=== PATIENT | male | born 1985 | race Caucasian/White ===

== ENCOUNTER 2017-07-20 15:55 | Emergency (ER) | payer MEDICAID, SELFPAY ==
[2017-07-20 15:56] VITALS: BP 136/82; PULSE 142; RESP 16; TEMP 36.7; O2SAT 95; BMI 26.5
--- NOTE | 2017-07-20 16:11 | EKG12_ITS ---
Test Reason : DYSRHYTHMIA Blood Pressure : / mmHG Vent. Rate : 116 BPM Atrial Rate : 116 BPM P-R Int : 138 ms QRS Dur : 084 ms QT Int : 324 ms P-R-T Axes : 028 037 055 degrees QTc Int : 450 ms Sinus tachycardia Otherwise normal ECG Confirmed by JAYSEH TERAN, ALVIN ([id number]), news copy editor BRANDON COATS ([id number]) on 07/25/2017 2:13:23 PM Referred By: KEVAN Confirmed By:ALVIN MCCONNELL MD
--- NOTE | 2017-07-20 16:14 | ED.DCSUM_ITS ---
- ER Visit Summary Date of Service: 07/20/17 Chief Complaint: [] Alcohol abuse requesting detox History of Present Illness: The patient is a 31 M [] of alcohol abuse drinks about 12 cans of beer a day long-standing he has a history of cirrhosis pancreatitis from the above, he indicates he was seen at [facility] today had a full evaluation they have cleared him for detox but sent him to the emergency department for screening labs of the screening labs unremarkable he is to be picked up by the [facility] personnel taken to detox today. The patient has no fever cough head neck chest or abdominal pain normal bowel bladder habits he denies abusing any other drugs he drank this morning Gastric bypass 2009 Physical Examination: [] His HEENT exam is unremarkable his vital signs are within normal limits his head neck exam unremarkable lungs are clear heart tones are normal abdomen soft nontender upper lower extremities unremarkable neurologically awake alert no psychomotor agitation Test Results: [] Emergency Department Course and Treatment: [] Clinically he is stable he is no will obtain screening labs if they are within normal range she will be discharged to complete his detox and to [facility] The patient's screening labs are generally unremarkable his hemoglobin is about 11 there is no old labs for comparison his LFTs are slightly elevated please see those reports his alcohol serum is pending given all the above he is awake he is alert we have asked the [facility] staff if they are available on psych to see the patient otherwise he will be discharged to continue his detox as discussed above Treatment Plan: [] Disposition: [] Detox [facility] Impression: [] Alcohol abuse requesting detox This note was generated with [employer] dictation software. It may contain incorrect words, spelling, and punctuation that were not noted in review of the chart prior to signing ED Disposition - Plan for ED Patient: Chief Complaint: Subst Abuse
[2017-07-20] MEDS: Ondansetron 4 MG/2 ML Vial IV (17:21)
[2017-07-20] MEDS: 0.9% Normal Saline 1,000 ML 1000 ML IV (17:21)
[2017-07-20 17:22] VITALS: BP 108/87; PULSE 112; RESP 17; O2SAT 93
[2017-07-20] MEDS: LORazepam 2 MG/ML Syringe 1 MG IV (17:26)
[2017-07-20 17:33] LABS: Absolute Lymphocyte Count 1.08 X10^3/ul (0.83-4.51); Absolute Neutrophil Count 1.5 X10^3/uL (2.0-7.7); Basophil# 0.02 X10^3/uL; Basophil% 0.7 % (0-1); Eosinophil# 0.01 X10^3/uL; Eosinophils% 0.3 % (0-5); Hematocrit 35.5 % (40-54); Hemoglobin 10.8 g/dl (13.0-16.5); Lymphocyte # 1.08 X10^3/ul (4.0); Lymphocyte % 37.4 % (19-41); Mean Corp Hgb Conc 30.4 g/gl (32-36); Mean Corpuscular Hgb 25.1 pg (27.0-32.0); Mean Corpuscular Volume 82.4 fL (80-94); Monocyte% 10.4 % (0-10); Neutrophil # 1.48 X10^3/uL (2.7-7.7); Neutrophil % 51.2 % (47-70); POSITIVE DIFFERENTIAL NO; Platelet Count 51 K/mm3 (150-450); RBC Distribution Width CV 20.2 % (11.6-14.6); RBC Distribution Width SD 60.8 fl (35.1-43.9); Red Blood Count 4.31 M/mm3 (4.6-6.2); White Blood Count 2.9 K/mm3 (4.4-11.0)
[2017-07-20 17:34] LABS: Differential Indicated SCAN CRITERIA MET; POSITIVE COUNT NO; POSITIVE MORPHOLOGY YES
[2017-07-20 17:36] LABS: AST(SGOT) 212 U/L (15-37); Alanine Aminotransfer ALT/SGPT 93 U/L (16-61); Albumin, Serum 2.6 g/dL (3.2-5.0); Alkaline Phosphatase 294 U/L (45-117); Anion Gap 9 (5-15); BUN 4 mg/dL (7-18); BUN/Creat Ratio 5.9 RATIO (10-20); Bilirubin, Direct 0.23 mg/dL (0.00-0.30); Calcium,Total 7.7 mg/dL (8.5-10.1); Chloride 106 mmol/L (98-107); Creatinine, Serum 0.68 mg/dL (0.70-1.30); EST Glomerular Filtration Rate 145 mL/min (>60); Est Glom Filt Rate - Afr Amer 176 mL/min (>60); Estimated Creatinine Clearance 164.01 ml/min; Globulin 3.8 g/dL (2.2-4.2); Glucose 100 mg/dL (74-106); Lipase 96 U/L (73-393); Potassium 3.9 mmol/L (3.5-5.1); Protein, Total 6.4 g/dL (6.4-8.2); Sodium Level 141 mmol/L (136-145)
--- NOTE | 2017-07-20 17:45 | ED.DEP ---
ED Disposition - Plan for ED Patient: Chief Complaint: Subst Abuse Instructions: ED Alcohol Abuse Additional Instructions: Continue your detox at the detox center as discussed with you and follow all the instructions they gave you when you saw them today
[2017-07-20 17:54] LABS: Anisocytosis RARE; Microcytosis RARE; Platelet Estimate MKD DEC (ADEQ)
[2017-07-20 18:07] VITALS: BP 107/81; PULSE 105; RESP 15; O2SAT 94
[2017-07-20 18:53] LABS: Bacteria 0 SEEN /hpf (None Seen); Mucous, Urine 0 SEEN /hpf (<or=2+); Red Blood Cells-Urine 0 SEEN /hpf (0-5); White Blood Cells 0 SEEN /hpf (0-5)
[2017-07-20 19:27] LABS: Color, Urine Yellow (Yellow); Glucose, Dipstick Normal (Normal); Ketone-Dipstick Negative (Negative); Leukocyte Esterase-Dipstick Negative /ul (Negative); Nitrite-Dipstick Negative (Negative); Occult Blood-Urine Negative /ul (Negative); Protein-Dipstick Negative (Negative); Urine Bilirubin Dipstick Negative (Negative); Urine Clarity Sl. Cloudy (Clear); Urine Urobilinogen Normal (Normal); Urine pH 6.5 (5.0 - 8.0)
[2017-07-20 20:22] LABS: Squamous Epithelial Cells - UA 0-5 SEEN /hpf (0-5)
== END 2017-07-20 18:09 | disposition home or self-care (01) ==
PROVIDERS: Emergency Provider Emergency Medicine
DX: F10.10 Alcohol abuse, uncomplicated (principal); K74.60 Unspecified cirrhosis of liver; Z87.19 Personal history of other diseases of the digestive system; Z98.84 Bariatric surgery status; Z79.899 Other long term (current) drug therapy
CPT/HCPCS: 80048; 80076; 80320; 81001; 83690; 85025; 93005; 99283; J7030; G0480

== ENCOUNTER 2017-07-21 12:05 | Inpatient (IN) | payer MEDICAID, SELFPAY ==
[2017-07-21 12:26] VITALS: BMI 26.6
--- NOTE | 2017-07-21 12:56 | NURSING ---
OFFICE CALLED AND ASKED TO FAX PT CURRENT MED LIST.
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
[2017-07-21 13:56] LABS: Alcohol, Blood (Medical)-Serum < 3.0 mg/dL
[2017-07-21 14:00] VITALS: BP 120/78; PULSE 120; PULSE 90; RESP 18; TEMP 37.1; O2SAT 100
[2017-07-21] MEDS: cloNIDine HCl 0.1 MG Tablet PO ×3 (14:04→22:39)
[2017-07-21] MEDS: LORazepam 1 MG Tablet PO ×3 (14:04→22:39)
[2017-07-21] MEDS: Pantoprazole Sodium 40 MG Tablet PO ×2 (14:05→22:39)
[2017-07-21] MEDS: oxyCODONE 5 MG Tablet PO ×2 (14:42→22:39)
--- NOTE | 2017-07-21 16:15 | CHAPLAIN ---
Type of Pastoral Visit _x__ Initial Visit ___ Follow-up Visit ___ On-call Visit ___ General Patient Visit ___ Spiritual Assessment ___ Family Conference ___ Bereavement ___ Rapid Response ___ Code Blue ___ Other (describe below) Pastoral Care Referral From _x__ Patient ___ Family ___ Nurse ___ Physician ___ Corner Cutter Machine Operator ___ Burr Grinder ___ Other (describe below) Sacrament/Intervention _x__ Active listening ___ Anointing ___ Anabaptism ___ Bereavement ___ Communion _x__ Natasha exploration ___ _x__ Life review _x__ Prayer ___ Reconciliation ___ Sacrament of Sick _x__ Supportive presence ___ Wedding ___ Other (describe below) Pastoral Comments patient is getting settled and finishing his lunch; pt says he has the jitters; pt talks about his decision about not going to the 9 month rehab because he does not want to lose his house; pt says that he can easily get a good job and save his house; pt says he will go to 90 AA meetings in 90 days instead; pt has a natasha connection and a relationship with a application developer from a previous employment; pt says that his mother blocks his phone calls; pt open to talk and prayer
[2017-07-21] MEDS: traMADol 50 MG Tablet PO (16:50)
[2017-07-21 18:00] VITALS: BP 106/76; BP 108/76; PULSE 102; PULSE 106; RESP 18; TEMP 36.8; O2SAT 100
[2017-07-21] MEDS: Dicyclomine 10 MG Capsule 20 MG PO (18:10)
[2017-07-21 20:00] VITALS: PULSE 86
[2017-07-21 22:09] LABS: Amphetamine Urine VISTA NEGATIVE (<1000 ng/mL); Barbiturate Urine VISTA POSITIVE (< 200 ng/mL); Benzodiazepine Urine VISTA NEGATIVE (< 200 ng/mL); Cocaine Urine VISTA NEGATIVE (< 300 ng/mL); Ecstacy Urine VISTA NEGATIVE (< 500 ng/mL); Methadone Urine VISTA NEGATIVE (< 300 ng/mL); PCP Urine VISTA NEGATIVE (< 25 ng/mL); THC Urine VISTA NEGATIVE (< 50 ng/mL); Vista UDS pH Range 7
[2017-07-21 22:31] VITALS: BP 114/82; PULSE 81; RESP 18; TEMP 36.9
[2017-07-21 23:26] VITALS: PULSE 74
[2017-07-22] VITALS (8 sets, daily range): BP systolic 100–114; BP diastolic 68–78; PULSE 68–103; RESP 12–18; TEMP 36.3–36.8; O2SAT 96
[2017-07-22] MEDS: cloNIDine HCl 0.1 MG Tablet PO ×5 (01:53→22:14)
[2017-07-22] MEDS: LORazepam 1 MG Tablet PO ×5 (01:53→22:14)
[2017-07-22] MEDS: QUEtiapine 25 MG Tablet PO ×3 (01:53→22:26)
[2017-07-22] MEDS: traMADol 50 MG Tablet PO ×2 (01:53→22:25)
[2017-07-22] MEDS: Dicyclomine 10 MG Capsule 20 MG PO ×2 (06:45→12:57)
[2017-07-22] MEDS: oxyCODONE 5 MG Tablet PO ×2 (06:45→15:00)
[2017-07-22 07:13] LABS: ALB/GLOB Ratio 0.7 RATIO (0.9-2.4); AST(SGOT) 112 U/L (15-37); Alanine Aminotransfer ALT/SGPT 62 U/L (16-61); Albumin, Serum 2.1 g/dL (3.2-5.0); Alkaline Phosphatase 215 U/L (45-117); Anion Gap 7 (5-15); BUN 7 mg/dL (7-18); Calcium,Total 7.5 mg/dL (8.5-10.1); Chloride 107 mmol/L (98-107); Creatinine, Serum 0.58 mg/dL (0.70-1.30); EST Glomerular Filtration Rate 173 mL/min (>60); Est Glom Filt Rate - Afr Amer 209 mL/min (>60); Estimated Creatinine Clearance 192.29 ml/min; Globulin 2.9 g/dL (2.2-4.2); Glucose 70 mg/dL (74-106); Lipase 65 U/L (73-393); Potassium 3.2 mmol/L (3.5-5.1); Sodium Level 140 mmol/L (136-145)
[2017-07-22 07:19] LABS: Absolute Lymphocyte Count 0.81 X10^3/ul (0.83-4.51); Absolute Neutrophil Count 0.7 X10^3/uL (2.0-7.7); Eosinophil# 0.01 X10^3/uL; Eosinophils% 0.6 % (0-5); Hematocrit 29.5 % (40-54); Lymphocyte # 0.81 X10^3/ul (4.0); Lymphocyte % 46.6 % (19-41); Mean Corp Hgb Conc 30.5 g/gl (32-36); Mean Corpuscular Hgb 25.3 pg (27.0-32.0); Mean Corpuscular Volume 82.9 fL (80-94); Monocyte# 0.19 X10^3/uL; Monocyte% 10.9 % (0-10); Neutrophil # 0.73 X10^3/uL (2.7-7.7); Neutrophil % 41.9 % (47-70); RBC Distribution Width CV 19.4 % (11.6-14.6); RBC Distribution Width SD 59.4 fl (35.1-43.9); Red Blood Count 3.56 M/mm3 (4.6-6.2); White Blood Count 1.7 K/mm3 (4.4-11.0)
[2017-07-22 07:24] LABS: Differential Indicated SCAN CRITERIA MET; POSITIVE COUNT NO; POSITIVE DIFFERENTIAL YES; POSITIVE MORPHOLOGY YES; Platelet Count 38 K/mm3 (150-450)
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
[2017-07-22 07:52] LABS: Platelet Estimate MKD DEC (ADEQ); Platelet Morphology LARGE
[2017-07-22 07:53] LABS: Anisocytosis 2+; Hypochromasia 1+
[2017-07-22] MEDS: Acetaminophen 500 MG Tablet PO (09:09)
[2017-07-22] MEDS: Pantoprazole Sodium 40 MG Tablet PO ×2 (09:15→22:15)
[2017-07-22] MEDS: Multivitamins,Ther W-Minerals Tablet 1 TABLET PO (09:16)
[2017-07-22] MEDS: Thiamine Hydrochloride 100 MG Tablet PO (11:57)
[2017-07-22] MEDS: Folic Acid 1 MG Tablet PO (11:57)
--- NOTE | 2017-07-22 16:33 | NURSING ---
Addendum entered by Jo Ann Holbrook 07/22/17 18:52: at 1745, pt was planning to leave AMA because we would not follow his normal med administration for pain meds. AMA papers were printed off, but pt refused to sign or to have IV removed at that time because I'm not signing shit! pt attempted to find a ride but was unable to do so. this RN asked if pt was planning to stay the night, pt stated yes, asked if he would participate in treatment plan including no oxyir, pt stated yes, but it's really stupid. MD aware. Original Note: pt very agitated that he is not getting as much pain medication as what he takes at home. informed pt that MD says if he is having that much pain, we will need to make him NPO and start IV fluids. pt states he wants to have at least one more meal. informed that eating can increase pain and that narcotics have side effects on the GI system. pt still very agitated but verbalizes understanding. at times patient will say that he is not having any withdrawal symptoms, that he has completed his detox, but then will describe hallucinations that he is experiencing. educated patient that hallucinations are a sign of withdrawal and that the ativan taper will help manage those.
[2017-07-23] VITALS (7 sets, daily range): BP systolic 106–124; BP diastolic 67–78; PULSE 55–122; RESP 16–18; TEMP 36.6–36.8; O2SAT 97–98
[2017-07-23] MEDS: LORazepam 1 MG Tablet PO ×3 (04:15→18:08)
[2017-07-23] MEDS: QUEtiapine 25 MG Tablet PO ×3 (04:16→23:58)
[2017-07-23 07:01] LABS: Hematocrit 33.5 % (40-54); Hemoglobin 10.1 g/dl (13.0-16.5); Mean Corp Hgb Conc 30.1 g/gl (32-36); Mean Corpuscular Hgb 25.1 pg (27.0-32.0); Mean Corpuscular Volume 83.3 fL (80-94); Platelet Count 54 K/mm3 (150-450); RBC Distribution Width CV 19.5 % (11.6-14.6); RBC Distribution Width SD 59.2 fl (35.1-43.9); Red Blood Count 4.02 M/mm3 (4.6-6.2); Scan Indicated on CBC? Y/N YES- FLAGS NOTED; White Blood Count 2.3 K/mm3 (4.4-11.0)
--- NOTE | 2017-07-23 07:19 | PN_ITS ---
Patient Problems: Active and Suspected Problems Alcohol withdrawal (Acute) Subjective: Afebrile, vital signs stable. Remains pancytopenic but all cell lines are improving with the discontinuation of Alcohol. Potassium is low at 3.2 but the other electrolytes are within normal limits. AST is 112 with an ALT of 62 and an alk phos of 215. Bilirubin is within normal limits and lipase is normal at 65. No nausea. slept well last night. No hallucinations. Tells me today that he never had a liver biopsy and his liver is enlarged and fatty. continues to eat 100% of diet plus. Objective: - Physical Exam General: Alert, Oriented x3, Cooperative, No apparent distress, Well developed, Well nourished HEENT: Atraumatic, PERRLA, EOMI Oral: Moist Mucosa Neck: Supple, Trachea Midline Lungs: Clear to auscultation Cardiovascular: Regular rate, Regular Rhythm, Normal S1, Normal S2, No murmurs, No Gallop Abdomen: Bowel Sounds Present, Soft, Non-Distended, Tender - diffusely with no guarding and no signs of discomfort, - - no guarding Extremities: No clubbing, No cyanosis, No edema, - - multiple tattoos Skin: No rashes Musculoskeletal: No Muscle Wasting Neurological: Cranial nerves II-XII grossly intact, Neuro grossly intact, - - minimal tremors of the hands Psych/Mental Status: - - no hallucinations - Physical Exam Vital Signs Temp Pulse Resp BP Pulse Ox 98.1 F 58 L 16 110/78 98 07/23/17 04:11 07/23/17 04:11 07/23/17 04:11 07/23/17 04:11 07/23/17 04:11 Oxygen Delivery Method Room Air Weight: 185 lb 8 oz Body Mass Index (BMI) 26.6 Intake and Output for Last 24 Hours 07/21/17 07/22/17 07/23/17 23:59 23:59 23:59 Intake Total 850 / 850 2572 / 2572 222 / 222 Balance 850 / 850 2572 / 2572 222 / 222 Laboratory Tests Past 24 Hrs 07/22/17 07/23/17 06:28 05:58 WBC 1.7 L 2.3 L RBC 3.56 L 4.02 L Hgb 9.0 L 10.1 L Hct 29.5 L 33.5 L MCV 82.9 83.3 MCH 25.3 L 25.1 L MCHC 30.5 L 30.1 L RDW 19.4 H 19.5 H RDW Differential 59.4 H 59.2 H Plt Count 38 L* 54 L MPV TNP Immature Gran % (Auto) 0.000 Neut % (Auto) 41.9 L Lymph % (Auto) 46.6 H [place] % (Auto) 10.9 H Eos % (Auto) 0.6 Baso % (Auto) 0.0 Absolute Neuts (auto) 0.7 L Absolute Lymphs (auto) 0.81 L Total Counted Not Reportable Diff Path Review May foll Platelet Estimate MKD DEC Plt Morphology Comment LARGE Hypochromasia 1+ Anisocytosis 2+ Medical Necessity - Tobacco Use Smoking Status: Current some day smoker Tobacco Use: Cigarettes Assessment/Plan Active and Suspected Problems Alcohol withdrawal (Acute) Impressions 1. alcoholism 2. reported hx of chronic pancreatitis - tells me he has chronic abdominal pain but is eating 100% plus of a regular diet with no obvious distress. No vomiting. Lipase is normal. No imaging of the pancreas has been done at this facility 3. Doubt cirrhosis - Lab is more consistent with alcoholic hepatitis. PT and bilirubin are within normal limits. likely has fatty infiltration 4. Family history of alcoholism 5. Drug screen is + for barbiturates......he did not list a barbiturate on the drug reconciliation 6. Tobacco dependence 7. Hypokalemia - supplemented 8. Pancytopenia-likely secondary to the toxic effects of alcohol on bone marrow.....it is already improving with alcohol abstention He is going to try and get a ride home with a friend today. I will DC if he does. He is not planning on going to inpt or OP rehab......tells me that he will attend AA He has been on as much as 3 mg of Xanax a day in the past and has also been on Dilaudid and oxycodone. We discussed trading 1 addiction for another. Food used to be his addiction and then he transitioned to ETOH after gastric bypass surgery. I am curious how he passed the psych eval generally done prior to gastric bypass surgery. Code Visit Inpatient E&M: 67063 Subs Hosp L2
[2017-07-23 07:24] LABS: Differential Comment SCAN
[2017-07-23] MEDS: Pantoprazole Sodium 40 MG Tablet PO ×2 (09:41→21:17)
[2017-07-23] MEDS: Thiamine Hydrochloride 100 MG Tablet PO (09:42)
[2017-07-23] MEDS: cloNIDine HCl 0.1 MG Tablet PO ×4 (09:42→21:17)
[2017-07-23] MEDS: Multivitamins,Ther W-Minerals Tablet 1 TABLET PO (09:42)
[2017-07-23] MEDS: Folic Acid 1 MG Tablet PO (09:43)
[2017-07-23] MEDS: Ondansetron ODT 4 MG Tablet PO (19:15)
[2017-07-23] MEDS: traMADol 50 MG Tablet PO (20:10)
[2017-07-23] MEDS: Dicyclomine 10 MG Capsule 20 MG PO (20:10)
[2017-07-24 01:30] VITALS: BP 114/77; PULSE 70; RESP 16; TEMP 36.8
[2017-07-24] MEDS: Acetaminophen 500 MG Tablet PO (01:34)
[2017-07-24] MEDS: cloNIDine HCl 0.1 MG Tablet PO ×4 (01:35→13:15)
[2017-07-24] MEDS: LORazepam 1 MG Tablet PO ×2 (01:35→09:18)
[2017-07-24 07:47] VITALS: BP 119/84; PULSE 55; RESP 16; TEMP 36.4; O2SAT 100
[2017-07-24] MEDS: traMADol 50 MG Tablet PO (07:57)
[2017-07-24] MEDS: Multivitamins,Ther W-Minerals Tablet 1 TABLET PO (07:58)
[2017-07-24] MEDS: Pantoprazole Sodium 40 MG Tablet PO (07:59)
--- NOTE | 2017-07-24 08:41 | PCM.DC ---
- Discharge Diagnoses Current Active Problems: Current Active and Chronic Problems Alcohol withdrawal (Acute) History of peptic ulcer disease (Chronic) Pancytopenia (Chronic) Chronic alcoholic pancreatitis (Chronic) Liver cirrhosis, alcoholic (Chronic) Alcohol abuse (Chronic) You will use the following diet at home:: Other - low fat diet Your food should be the consistency of: Regular Your liquids should be the consistency of: Regular/Thin Discharge Activity: Return to Normal Activity Call your doctor if you observe: Fever of 101 or Higher Allergies/Adverse Reactions: Allergies Penicillins Allergy (Verified 07/21/17 12:52) Hives morphine Adverse Reaction (Verified 07/20/17 17:24) Vomiting trazodone Adverse Reaction (Verified 07/20/17 17:24) Unknown Medications to take at Discharge Amitriptyline HCl 25 mg PO TID 07/20/17 HYDROmorphone tablet [Dilaudid] 2 mg PO PRN PRN 07/20/17 Omeprazole [Prilosec] 20 mg PO DAILY 07/20/17 Oxycodone [Oxyir] 5 mg PO Q6H PRN PRN 07/20/17 Primary Care Physician: Wendy Hopkins,Out of [Primary Care Provider] - Proposed Discharge Date: 07/24/17
[2017-07-24] MEDS: Folic Acid 1 MG Tablet PO (09:18)
--- NOTE | 2017-07-24 09:27 | DS.PCM_ITS ---
Discharge Date and Diagnosis Date of Admission: 07/21/17 Date of Discharge: 07/24/17 - Primary Discharge Diagnosis Active and Suspected Problems Alcohol withdrawal (Acute) Abnormal LFTs (Acute) Hypokalemia (Acute) Pancytopenia due to ETOH - Secondary Discharge Diagnosis Chronic Problems History of peptic ulcer disease (Chronic) Chronic alcoholic pancreatitis (Chronic) - I am suspicious of this....lipase is normal and he eats fatty foods with no problem Reported Liver cirrhosis, alcoholic (Chronic) - Alcohol abuse (Chronic) chronic narcotic use Hx of Gastric bypass surgery Hospital Course and Treatment Imaging Results: Laboratory Tests 07/21/17 07/21/17 07/22/17 13:10 20:25 06:28 WBC 1.7 L RBC 3.56 L Hgb 9.0 L Hct 29.5 L MCV 82.9 MCH 25.3 L MCHC 30.5 L RDW 19.4 H RDW Differential 59.4 H Plt Count 38 L* MPV TNP Immature Gran % (Auto) 0.000 Neut % (Auto) 41.9 L Lymph % (Auto) 46.6 H [place] % (Auto) 10.9 H Eos % (Auto) 0.6 Baso % (Auto) 0.0 Absolute Neuts (auto) 0.7 L Absolute Lymphs (auto) 0.81 L Total Counted Not Reportable Differential Comment Diff Path Review May foll Platelet Estimate MKD DEC Plt Morphology Comment LARGE Hypochromasia 1+ Anisocytosis 2+ PT INR Sodium Potassium Chloride Carbon Dioxide Anion Gap BUN Creatinine Estim Creat Clear Calc Est GFR (MDRD) Af Amer Est GFR (MDRD) Non-Af BUN/Creatinine Ratio Glucose Calcium Total Bilirubin AST ALT Alkaline Phosphatase Total Protein Albumin Globulin Albumin/Globulin Ratio Lipase Urine Opiates Screen NEGATIVE Urine Methadone Screen NEGATIVE Ur Barbiturates Screen POSITIVE H Ur Phencyclidine Scrn NEGATIVE Ur Amphetamines Screen NEGATIVE U Methamphetamin-MDMA NEGATIVE U Benzodiazepines Scrn NEGATIVE Urine Cocaine Screen NEGATIVE U Cannabinoids Screen NEGATIVE Ur Drug Screen Comment Ethyl Alcohol < 3.0 07/22/17 07/22/17 07/23/17 06:28 06:28 05:58 WBC 2.3 L RBC 4.02 L Hgb 10.1 L Hct 33.5 L MCV 83.3 MCH 25.1 L MCHC 30.1 L RDW 19.5 H RDW Differential 59.2 H Plt Count 54 L MPV Immature Gran % (Auto) Neut % (Auto) Lymph % (Auto) [place] % (Auto) Eos % (Auto) Baso % (Auto) Absolute Neuts (auto) Absolute Lymphs (auto) Total Counted Differential Comment SCAN Diff Path Review Platelet Estimate Plt Morphology Comment Hypochromasia Anisocytosis PT 13.0 INR 1.0 Sodium 140 Potassium 3.2 L Chloride 107 Carbon Dioxide 26.0 Anion Gap 7 BUN 7 Creatinine 0.58 L Estim Creat Clear Calc 192.29 Est GFR (MDRD) Af Amer 209 Est GFR (MDRD) Non-Af 173 BUN/Creatinine Ratio 12.0 Glucose 70 L Calcium 7.5 L Total Bilirubin 1.00 AST 112 H ALT 62 H Alkaline Phosphatase 215 H Total Protein 5.0 L Albumin 2.1 L Globulin 2.9 Albumin/Globulin Ratio 0.7 L Lipase 65 L Urine Opiates Screen Urine Methadone Screen Ur Barbiturates Screen Ur Phencyclidine Scrn Ur Amphetamines Screen U Methamphetamin-MDMA U Benzodiazepines Scrn Urine Cocaine Screen U Cannabinoids Screen Ur Drug Screen Comment Ethyl Alcohol none Operations: None Procedures: None Summary of Care Provided: The patient is a 31-year-old male with a history of chronic alcoholic pancreatitis, alcoholic cirrhosis ( yet he has never had a liver biosy and the bili and the PT are normal) , alcoholism, pancytopenia and PUD who presented to the [facility] office at [facility] on 07/21/17 requesting in patient admission for medically supervised withdrawal from ETOH. He complained of abdominal pain with N/V and also shakiness. He is on Hydromorphone and OXY IR for chronic pain from pancreatitis and yet the drug screen was negative for opiates? It was + for barbituates and he does not list this on his medication reconciliation. Labs showed a pancytopenia with white blood cell count of 1.7 , hemoglobin of 9.0, platelet count of 38,000. The MCV was 82.9 and the RDW was elevated at 19.4. PT was 13. Potassium was low at 3.2. Glucose was low at 70. Liver profile was consistent with acute alcoholic hepatitis with an AST of 112 and an ALT of 62. Bilirubin was normal and the alk phos was mildly increased at 215. Lipase was 65. He was admitted to the hospital and the [facility] protocol for ETOH withdrawal was initiated. The patient continually complained of severe abdominal pain and wanted narcotics BUT, he was eating 100% Plus of all meals and ordered fatty foods with no nausea or vomiting. He threatened to leave several times but, never actually left......even when he was discharged he stayed in the hospital for several hours. He had no hallucinations during his stay and no seizures. His plan is to go to 90 AA meetings in 90 days and he is hoping to meet women there. A repeat CBC was obtained after admission and all cell lines were increasing with the discontinuation of the ETOH. He was discharged home on 07/24. This note was generated with [employer] dictation software. It may contain incorrect words, spelling, and punctuation that were not noted in checking the note before signing. Discharge Activity: Return to Normal Activity Call your doctor if you observe: Fever of 101 or Higher Home Medications: Medications to take at Discharge Amitriptyline HCl 25 mg PO TID 07/20/17 HYDROmorphone tablet [Dilaudid] 2 mg PO PRN PRN 07/20/17 Omeprazole [Prilosec] 20 mg PO DAILY 07/20/17 Oxycodone [Oxyir] 5 mg PO Q6H PRN PRN 07/20/17 Primary Care Physician: Wendy Hopkins,Out of [Primary Care Provider] - Disposition: Home Minutes spent on discharge:: 30 Medical Necessity - Tobacco Use Smoking Status: Current some day smoker Tobacco Use: Cigarettes Meaningful Use Info Meaningful Use Diagnoses (Choose all that apply): None applicable Code Visit Inpatient E&M: 38722 Disch Hosp
[2017-07-24 11:31] LABS: Pathologist Review Reviewed
--- NOTE | 2017-07-24 13:36 | NURSING ---
Received call from Gladys from [facility] aware she arranged transport aware she talked with the patient and informed him he needs to wait for the ride in his room, it would be through [place] and would be a taxi, and they would be there between now and 3hrs. Primary RN updated.
--- NOTE | 2017-07-24 16:33 | NURSING ---
pt upset that he can not get more ativan. explained that the ativan is a taper dose for withdraw symptoms and he is not finished. pt upset stated that he has this at home from a aquatic ecologist. explained that he would need to follow up with that dr. he stated that dr retired. told the pt that he would need to make an appt with a new dr. told pt on admit he signed papers that explained this program that he knew what to expect. the dr is not going to send him home with any prescriptions.
== END 2017-07-24 17:07 | disposition home or self-care (01) | DRG 434 ==
PROVIDERS: Admitting Provider Hospitalist; Visit Provider Internal Medicine
DX: F10.239 Alcohol dependence with withdrawal, unspecified (principal); K70.30 Alcoholic cirrhosis of liver without ascites; D61.818 Other pancytopenia; K86.0 Alcohol-induced chronic pancreatitis; Z87.11 Personal history of peptic ulcer disease; Z98.84 Bariatric surgery status; F17.210 Nicotine dependence, cigarettes, uncomplicated; E87.6 Hypokalemia
CPT/HCPCS: 36415; 80048; 80053; 80076; 80307; 80320; 81001; 83690; 85025; 85027; 85610; 93005; 96361; 96374; 96375; 99283; J7030; A4216; G0480; J3490